=== PATIENT | female | born 1990 | race Two or more races ===

== ENCOUNTER 2020-03-15 00:46 | Emergency (ER) | payer SELFPAY ==
[~2020-03-15] VITALS: Ht 157.5 cm; Wt 81.4 kg
[2020-03-15] MEDS ORDERED: ACETAMINOPHEN 650 mg PER 20.3 mL UD PO ONE (01:30)
[2020-03-15] MEDS ORDERED: CLINDAMYCIN 900MG IV 50 ML IV ONE (01:30)
[2020-03-15] MEDS ORDERED: ACETAMINOPHEN 325 MG TAB PO ONE (01:30)
[2020-03-15] MEDS ORDERED: LORazepam 2MG/ML-1ML VIAL IV ONE (01:30)
[2020-03-15] MEDS ORDERED: SODIUM CHLORIDE 0.9% 2,000 ML IV ONE (01:30)
[2020-03-15 02:26] LABS: Basophils # (auto) 0.1 10 ^3/uL (0-0.2); Eosinophils # (auto) 0.2 10 ^3/uL (0-0.8); Lymphocytes # (auto) 3.3 10 ^3/uL (0.4-5.4); Monocytes # (auto) 1.2 10 ^3/uL (0-1.3); Nucleated Red Blood Cells % 0.1 %; Red Blood Cells 4.79 10^6/uL (4.0-5.20); Red Cell Distribution Width 19.2 % (11.8-14.3)
[2020-03-15 02:28] LABS: Basophils % (auto) 0.6 % (0.0-2.0); Eosinophils % (auto) 1.9 % (0.0-7.0); Hematocrit 35.5 % (36.0-46.0); Hemoglobin 11.7 g/dL (12.2-16.2); Lymphocytes % (auto) 25.9 % (10.0-50.0); Mean Corpuscular Hemoglobin 24.3 pg (28.0-32.0); Mean Corpuscular Hgb Conc. 32.8 g/dL (32.0-36.0); Mean Corpuscular Volume 74.3 fL (80.0-100.0); Monocytes % (auto) 9.2 % (0.0-12.0); Neutrophils # (auto) 7.8 10 ^3/uL (1.6-8.6); Neutrophils % (auto) 62.4 % (37.0-80.0); Platelet Count (auto) 336 10^3/uL (140-450); White Blood Cell 12.6 10^3/uL (4.4-10.8)
[2020-03-15 02:45] LABS: Salicylate < 1.7 mg/dL (2.8-20.0)
[2020-03-15 02:47] LABS: Albumin 4.4 g/dL (3.4-5.0); Calcium 9.1 mg/dL (8.5-10.1); Magnesium 2.4 mg/dL (1.6-2.6); Potassium 3.3 mmol/L (3.5-5.1)
[2020-03-15 02:50] LABS: Bilirubin, Total 0.8 mg/dL (0.2-1.0); Total Protein 8.7 g/dL (6.4-8.2)
[2020-03-15 03:15] LABS: Acetaminophen < 2.0 ug/mL (10-30)
[2020-03-15] MEDS: POTASSIUM EFFERVESENT TAB 25 MEQ PO ONE ×2 (03:15→09:32)
[2020-03-15 07:57] VITALS: BP 112/62
== END 2020-03-15 12:22 | disposition home or self-care (01) ==
LOC: ER 00:48
DX: S00.522A Blister (nonthermal) of oral cavity, initial encounter (principal); K05.10 Chronic gingivitis, plaque induced; F41.9 Anxiety disorder, unspecified; X58.XXXA Exposure to other specified factors, initial encounter; Y93.89 Activity, other specified; Y92.89 Other specified places as the place of occurrence of the external cause; Y99.8 Other external cause status
CPT/HCPCS: 36415; 80053; 80320; 80329; 83735; 84484; 84702; 85025; 93005; 96365; 96366; 96375; 99285; J2060; J3490; J7030

== ENCOUNTER 2020-03-15 20:39 | Emergency (ER) | payer OTHER ==
[~2020-03-15] VITALS: Ht 162.6 cm; Wt 68.0 kg
[2020-03-15] MEDS ORDERED: LORazepam 0.5 MG TAB PO ONE (22:00)
[2020-03-15 22:36] LABS: Eosinophils # (auto) 0.3 10 ^3/uL (0-0.8); Hemoglobin 11.2 g/dL (12.2-16.2); Monocytes # (auto) 1.2 10 ^3/uL (0-1.3); Neutrophils # (auto) 5.3 10 ^3/uL (1.6-8.6); Nucleated Red Blood Cells % 0.1 %
[2020-03-15 22:38] LABS: Basophils # (auto) 0.1 10 ^3/uL (0-0.2); Basophils % (auto) 0.7 % (0.0-2.0); Eosinophils % (auto) 3.1 % (0.0-7.0); Hematocrit 34.7 % (36.0-46.0); Lymphocytes # (auto) 2.5 10 ^3/uL (0.4-5.4); Lymphocytes % (auto) 27.1 % (10.0-50.0); Mean Corpuscular Hemoglobin 24.9 pg (28.0-32.0); Mean Corpuscular Hgb Conc. 32.3 g/dL (32.0-36.0); Mean Corpuscular Volume 76.9 fL (80.0-100.0); Monocytes % (auto) 12.4 % (0.0-12.0); Neutrophils % (auto) 56.7 % (37.0-80.0); Platelet Count (auto) 288 10^3/uL (140-450); Red Blood Cells 4.52 10^6/uL (4.0-5.20); Red Cell Distribution Width 19.5 % (11.8-14.3); White Blood Cell 9.3 10^3/uL (4.4-10.8)
[2020-03-15 22:55] LABS: Albumin 3.8 g/dL (3.4-5.0); Calcium 8.3 mg/dL (8.5-10.1); Chloride 109 mmol/L (98-107); Potassium 3.8 mmol/L (3.5-5.1); Sodium 139 mmol/L (136-145)
[2020-03-15 22:56] LABS: Salicylate < 1.7 mg/dL (2.8-20.0)
[2020-03-15 22:57] LABS: Acetaminophen < 2.0 ug/mL (10-30)
[2020-03-15 23:02] LABS: Alanine Aminotransferase 30 U/L (13-56); Alkaline Phosphatase 102 U/L (45-117); Anion Gap 3 (5-15); Aspartate Aminotransferase 30 U/L (15-37); Bilirubin, Total 0.4 mg/dL (0.2-1.0); Blood Alcohol < 3.0 mg/dL (0-5); Blood Urea Nitrogen 14 mg/dL (7-18); Carbon Dioxide 27 mmol/L (21-32); GFR African American 149 mL/min; GFR Non-African American 123 mL/min; Glucose 99 mg/dL (74-106); Magnesium 2.4 mg/dL (1.6-2.6)
[2020-03-15 23:59] LABS: Urine Amorphous Crystal FEW /hpf (None Seen); Urine Bacteria FEW /hpf (None Seen); Urine Blood Negative /uL (Negative); Urine Mucus FEW (None Seen); Urine WBC 8 /hpf (0 - 5)
[2020-03-16] MEDS ORDERED: CLINDAMYCIN HCL 150 MG CAP PO ONE
[2020-03-16] MEDS ORDERED: ACETAMINOPHEN 650 mg PER 20.3 mL UD PO ONE
[2020-03-16 00:12] LABS: Amphetamine Screen, Urine POSITIVE (NEGATIVE); Barbiturate Scree,Urine NEGATIVE (NEGATIVE); Benzodiazephine Screen, Urine NEGATIVE (NEGATIVE); Cannabinoid Screen, Urine NEGATIVE (NEGATIVE); Cocaine Screen, Urine NEGATIVE (NEGATIVE); Opiate Scree,Urine NEGATIVE (NEGATIVE); Phencyclidine Screen, Urine NEGATIVE (NEGATIVE)
[2020-03-16] MEDS ORDERED: cefTRIAXone SOD 1,000 MG VL IM ONE (00:30)
[2020-03-16] MEDS ORDERED: ACETAMINOPHEN 650 mg PER 20.3 mL UD PO PRN (04:00)
[2020-03-16] MEDS ORDERED: LIDOCAINE 2% (LOCAL ANESTH.) PF 5ml SDV ONE (04:19)
[2020-03-16] MEDS ORDERED: LORazepam 2MG/ML-1ML VIAL IM PRN (05:45)
[2020-03-16] MEDS ORDERED: HALOPERIDOL LACTATE 5 MG/ML INJ VIAL IM PRN (05:45)
[2020-03-16] MEDS: GABAPENTIN 100 MG CAP PO SCH ×2 (08:34→14:58)
[2020-03-16] MEDS: QUEtiapine FUMARATE 25 MG TAB PO SCH ×3 (08:34→19:32)
[2020-03-16] MEDS ORDERED: AMOXICILLIN/CLAVUL 875 MG TAB PO SCH (10:00)
[2020-03-16] MEDS: LEXAPRO 10 MG PO SCH (11:02)
[2020-03-17] MEDS: QUEtiapine FUMARATE 25 MG TAB PO SCH ×5 (01:39→22:42)
[2020-03-17] MEDS: GABAPENTIN 100 MG CAP PO SCH ×4 (01:39→22:42)
[2020-03-17] MEDS: LEXAPRO 10 MG PO SCH (09:45)
[2020-03-17] MEDS ORDERED: NITROFURANTOIN 100 mg CAP PO ONE (10:00)
[2020-03-18] MEDS: GABAPENTIN 100 MG CAP PO SCH ×2 (06:37→14:42)
[2020-03-18] MEDS: QUEtiapine FUMARATE 25 MG TAB PO SCH ×2 (06:37→12:43)
[2020-03-18] MEDS: LEXAPRO 10 MG PO SCH (10:00)
[2020-03-18] MEDS ORDERED: LIDOCAINE 2%HCL (LOCAL ANESTH.) INJ 20ML MDV ONE (12:09)
[2020-03-18] MEDS ORDERED: cefTRIAXone SOD 1,000 MG VL IM ONE (12:15)
[2020-03-18] MEDS ORDERED: ACETAMINOPHEN 325 MG TAB PO ONE (12:15)
[2020-03-18] MEDS ORDERED: LIDOCAINE 2%HCL (LOCAL ANESTH.) INJ 10ml MDV IJ ONE (12:15)
[2020-03-18 17:03] VITALS: BP 133/100
== END 2020-03-18 17:21 | disposition short-term general hospital (02) ==
LOC: EDBD 20:39 → ER 20:39
DX: R45.851 Suicidal ideations (principal); D64.9 Anemia, unspecified; K04.7 Periapical abscess without sinus; N39.0 Urinary tract infection, site not specified; F31.9 Bipolar disorder, unspecified; F20.9 Schizophrenia, unspecified; F15.10 Other stimulant abuse, uncomplicated; Z20.822 Contact with and (suspected) exposure to COVID-19
CPT/HCPCS: 36415; 80053; 80307; 80320; 80329; 81001; 83735; 85025; 87426; 96372; 99285; C9803; J0696; J2001; U0003